=== PATIENT | male | born 1995 | race Caucasian/White ===

== ENCOUNTER 2025-02-09 19:36 | Emergency (ER) | payer MEDICAID ==
[~2025-02-09] VITALS: Ht 177.8 cm; Wt 72.0 kg
[2025-02-09 19:42] VITALS: BP 126/78; PULSE 84; RESP 18; TEMP 97.8; O2SAT 98
[2025-02-09 22:24] LABS: PLATELET COUNT (AUTO) 284 K/uL (150-450); RED BLOOD CELL COUNT(AUTO) 4.98 MIL/uL (4.50-5.90); RED CELL DISTRIBUTION WIDTH 13.9 % (11.5-14.5); WHITE BLOOD COUNT (AUTO) 7.3 K/uL (4.5-11.0)
[2025-02-09 22:33] LABS: CALCIUM, TOTAL 9.3 mg/dL (8.8-10.5); CREATININE 0.71 mg/dL (0.60-1.30); GLOMERULAR FILTR. RATE CALC > 60 mL/min (>60); GLUCOSE,RANDOM 83 mg/dL (70-110); SODIUM SERUM 137 mmol/L (136-145); UREA NITROGEN, BLOOD 11 mg/dL (7-18)
[2025-02-09] MEDS: KETOROLAC TROMETHAMINE 30 MG/ML VIAL IVP ONE (22:43)
== END 2025-02-10 00:37 | disposition home or self-care (01) ==
LOC: EMS 20:10
DX: S43.012A Anterior subluxation of left humerus, initial encounter (principal); G40.909 Epilepsy, unspecified, not intractable, without status epilepticus; X58.XXXA Exposure to other specified factors, initial encounter; Y93.89 Activity, other specified; Y92.89 Other specified places as the place of occurrence of the external cause; Y99.8 Other external cause status
CPT/HCPCS: 99284; 96374; 80048; 85025; 36415; 73030; J1885